=== PATIENT | male | born 1985 | race Caucasian/White ===

== ENCOUNTER 2017-02-11 04:04 | Emergency (ER) | payer OTHER ==
[~2017-02-11] VITALS: Ht 160 cm; Wt 74.9 kg
[2017-02-11 04:16] VITALS: BP 133/78; PULSE 74; RESP 14; TEMP 98.5
[2017-02-11 04:18] VITALS: Ht 160 cm; Wt 74.9 kg
[2017-02-11] MEDS ORDERED: IBUPROFEN 800 MG TAB PO ONE (06:30)
--- NOTE | 2017-02-11 07:12 | RADRPT ---
PROCEDURE: XR Ankle. CLINICAL INDICATION: Left ankle pain following injury TECHNIQUE: 3 views of the left ankle were performed. COMPARISON: None. FINDINGS: The osseous structures demonstrate normal alignment and mineralization. No acute fracture or disloc ation is seen. The ankle mortise is intact. No periostitis or osteochondral lesion is identified. There is spurring along the dorsal margin of the talar neck. No significant soft tissue abnormaliti es seen. IMPRESSION: Unremarkable left ankle x-ray series. RPTAT: HH .Delores Ridley MD, MD Date Time Electronically viewed and signed by .Delores Ridley MD, on 02/11/2017 07:12 .G/
[2017-02-11] MEDS ORDERED: IBUP800T25 PO (07:57)
--- NOTE | 2017-02-11 17:48 | ERD ---
ER Documentation Chief Complaint Chief Complaint Pallet pushed into L. Ankle by forklift. HPI 31-year-old male complaining of left ankle pain. Patient stated that palate was pushed into his left ankle by a forklift at work. This happened about 2 hours ago. He was able to walk and bear weight after the injury. Denies any other injuries. This is a Worker's Compensation visit. ROS All systems reviewed and are negative except as per history of present illness. Medications Home Meds Active Scripts Ibuprofen* (Motrin*) 800 Mg Tab, 800 MG PO Q6H Y for PAIN AND OR ELEVATED TEMP, #30 TAB Prov:SHANNAN CHUNG. SOFTWARE BUILD ENGINEER 02/11/17 Allergies Allergies: Coded Allergies: No Known Allergy (Unverified , 02/11/17) PMhx/Soc Medical and Surgical Hx: pt denies Surgical Hx History of Surgery: No Anesthesia Reaction: No Hx Neurological Disorder: No Hx Respiratory Disorders: No Hx Cardiac Disorders: No Hx Psychiatric Problems: No Hx Miscellaneous Medical Probl: Yes (VERTIGO) Hx Alcohol Use: No Hx Substance Use: No Hx Tobacco Use: No Smoking Status: Never smoker Physical Exam Vitals Vital Signs Date Time Temp Pulse Resp B/P Pulse Ox O2 Delivery O2 Flow Rate FiO2 02/11/17 04:18 98.5 74 14 133/78 96 02/11/17 04:16 98.5 74 14 133/78 96 Room Air Physical Exam General: Patient is well-developed. Awake, alert, and conversant, in no apparent distress Skin: Warm and dry Head: Normocephalic, atraumatic without palpable deformities Eyes: Pupils equal, round, and reactive to light. Extraocular movements intact. No periorbital ecchymosis or step-off Chest: No surface trauma. Nontender without crepitus or deformity. No palpable subcutaneous air. Lungs have good tidal volume, lungs clear to auscultate bilaterally Heart: Regular rate and rhythm. No murmur, rub, or gallop Extremities: Mild ecchymosis and swelling noted at the medial malleolus of the left ankle. Full range of motion without limitation or pain. Good strength in all extremities. Sensation to light touch intact. All peripheral pulses are intact and equal Neuro: Alert and oriented 4, GCS 15, cranial nerves II through XII intact. Motor and sensory exam is nonfocal. Reflexes are symmetric Results 24 hrs Current Medications Medications (Trade) Dose Ordered Sig/Shakira Route PRN Reason Start Time Stop Time Status Last Admin Dose Admin Ibuprofen (Motrin) 800 mg ONCE ONCE PO 02/11/17 06:30 02/11/17 06:31 DC 02/11/17 06:58 PROCEDURE: XR Ankle. CLINICAL INDICATION: Left ankle pain following injury TECHNIQUE: 3 views of the left ankle were performed. COMPARISON: None. FINDINGS: The osseous structures demonstrate normal alignment and mineralization. No acute fracture or dislocation is seen. The ankle mortise is intact. No periostitis or osteochondral lesion is identified. There is spurring along the dorsal margin of the talar neck. No significant soft tissue abnormalities seen. IMPRESSION: Unremarkable left ankle x-ray series. RPTAT: HH .Delores Ridley MD, MD Date Time Electronically viewed and signed by .Delores Ridley MD, on 02/11/2017 07 :12 .G/ CC: SHANNAN CHUNG SOFTWARE BUILD ENGINEER Procedures/MDM Well-appearing 31-year-old male present ED was left ankle pain after a minor injury at work. X-ray of the left ankle was obtained, negative for fractures or dislocations. Likely patient sustained a mild contusion of the left ankle. Patient given ibuprofen in the ED for pain. Patient appears well, stable for discharge and outpatient management. Medical decision making shared with patient and family. Education provided to patient and family. Patient and family expressed understanding of the plan. Medications on discharge: Ibuprofen. Follow-up: Primary care provider in 2-3 days or return to ED if worse. Disclaimer: Inadvertent spelling and grammatical errors are likely due to EHR/ dictation software use and do not reflect on the overall quality of patient care. Also, please note that the electronic time recorded on this note does not necessarily reflect the actual time of the patient encounter. Departure Diagnosis: Primary Impression: Ankle contusion Encounter type: initial encounter Laterality: left Qualified Code: S90.02XA - Contusion of left ankle, initial encounter Condition: Stable Patient Instructions: Contusion, Lower Extremity Referrals: [facility] YOU HAVE RECEIVED A MEDICAL SCREENING EXAM AND THE RESULTS INDICATE THAT YOU DO NOT HAVE A CONDITION THAT REQUIRES URGENT TREATMENT IN THE EMERGENCY DEPARTMENT. FURTHER EVALUATION AND TREATMENT OF YOUR CONDITION CAN WAIT UNTIL YOU ARE SEEN IN YOUR DOCTORS OFFICE WITHIN THE NEXT 1-2 DAYS. IT IS YOUR RESPONSIBILITY TO MAKE AN APPOINTMENT FOR FOLOW-UP CARE. IF YOU HAVE A PRIMARY DOCTOR --you should call your primary doctor and schedule an appointment IF YOU DO NOT HAVE A PRIMARY DOCTOR YOU CAN CALL OUR PHYSICIAN REFERRAL HOTLINE AT IF YOU CAN NOT AFFORD TO SEE A PHYSICIAN YOU CAN CHOSE FROM THE FOLLOWING [facility] [address] [facility]. [facility] [address] [facility] [facility] [address] [facility] [facility] [address] [facility]. [facility] [address] [facility]. [facility]. [address] Additional Instructions: Call your primary care doctor TOMORROW for an appointment during the next 1 WEEK.Tell the unit secretary that you were referred from this facility.See the doctor sooner or return here if your condition worsens before your appointment time. SHANNAN CHUNG NP Feb 11, 2017 17:48
== END 2017-02-11 09:31 | disposition home or self-care (01) ==
LOC: FTE 04:04
DX: S90.02XA Contusion of left ankle, initial encounter (principal); W22.8XXA Striking against or struck by other objects, initial encounter; Y92.89 Other specified places as the place of occurrence of the external cause
CPT/HCPCS: 73610